=== PATIENT | male | born 1935 | race African-American/Black ===

== ENCOUNTER 2016-09-15 12:14 | Emergency (ER) | payer OTHER ==
[~2016-09-15] VITALS: Ht 185.4 cm; Wt 78.4 kg
[2016-09-15 13:03] LABS: CREATININE 1.8 mg/dL (0.6-1.3); POTASSIUM 3.8 mEq/L (3.7-5.4)
[2016-09-15] MEDS ORDERED: METOPROLOL SUCC25 MG PO (13:28)
[2016-09-15] MEDS ORDERED: ELIQUIS2.5 MG PO (13:28)
[2016-09-15] MEDS ORDERED: JANUVIA25 MG PO (13:29)
[2016-09-15 13:33] VITALS: BP 133/68
== END 2016-09-15 13:35 | disposition home or self-care (01) ==
LOC: EME 12:14
PROVIDERS: Emergency Medicine
PROC: 0T9B70Z Drainage of Bladder with Drainage Device, Via Natural or Artificial Opening (ICD-10-PCS; principal; 2016-09-15)
DX: N40.1 Benign prostatic hyperplasia with lower urinary tract symptoms (principal); R33.8 Other retention of urine; N17.9 Acute kidney failure, unspecified; T83.83XA Hemorrhage due to genitourinary prosthetic devices, implants and grafts, initial encounter; E11.9 Type 2 diabetes mellitus without complications; Z79.84 Long term (current) use of oral hypoglycemic drugs; Z85.46 Personal history of malignant neoplasm of prostate; Z87.891 Personal history of nicotine dependence
CPT/HCPCS: 80047; 81003; 99281; 99284

== ENCOUNTER → 2016-12-14 | Outpatient (CLI) | payer OTHER ==
[~2016-12-14] MED LIST: ELIQUIS2.5 MG PO; JANUVIA25 MG PO; METOPROLOL SUCC25 MG PO
== END ==
LOC: RAD 08:18
DX: N28.9 Disorder of kidney and ureter, unspecified (principal); Z95.828 Presence of other vascular implants and grafts
CPT/HCPCS: 71250

== ENCOUNTER 2017-02-28 09:01 | Emergency (ER) | payer OTHER ==
[~2017-02-28] VITALS: Ht 185.4 cm; Wt 81.7 kg
[2017-02-28 10:11] LABS: EOSINOPHIL (%) 1.4 % (0-5); EOSINOPHIL COUNT 0.1 K/uL (0-0.3); HEMATOCRIT 35.5 % (38.0-50.0); IMMATURE GRANULOCYTE (%) 0.5 % (0.0-0.7); IMMATURE GRANULOCYTE COUNT 0.1 K/uL; INSTRUMENT ABS NEUTROPHIL CT 7.8 K/uL; LYMPHOCYTE COUNT 1.3 K/uL (1.0-2.8); MCH 26.1 PG (29.0-34.0); MCHC 32.1 G/DL (30.0-36.0); MCV 81.2 FL (86-99); MEAN PLAT.VOLUME 10.3 uM^3 (9.0-12.4); MONOCYTE COUNT 0.8 K/uL (0-0.8); NEUTROPHIL (%) 77.4 % (45-76); NEUTROPHIL COUNT 7.8 K/uL (1.8-6.4); PLATELET COUNT 213 K/uL (156-360); RBC DIS.WIDTH-CV 16.2 % (11.8-14.6); RBC DIS.WIDTH-SD 48.7 % (39-53); RED BLOOD COUNT 4.37 M/uL (4.00-5.50); WHITE BLOOD COUNT 10.1 K/uL (4.1-10.2)
[2017-02-28 10:21] LABS: CHLORIDE 106 mEq/L (99-109); POTASSIUM 3.7 mEq/L (3.7-5.4); SODIUM 138 mEq/L (136-147)
[2017-02-28 10:22] LABS: GLUCOSE 193 mg/dL (70-99)
[2017-02-28 10:24] LABS: ANION GAP 11 MEQ/L (2-14)
[2017-02-28 10:26] LABS: GFR ESTIMATE (CALCULATED) 50 mL/min/
[2017-02-28 10:27] LABS: UREA NITROGEN (BUN) 13 mg/dL (9-23)
[2017-02-28 11:21] LABS: ADD MIUA? YES; BILIRUBIN NEGATIVE; BLOOD SMALL; COLOR YELLOW ((YELLOW)); GLUCOSE (STRIP) NEGATIVE; KETONES NEGATIVE; LEUKOCYTES LARGE; NITRITE NEGATIVE; PROTEIN (STRIP) 30; UROBILINOGEN 0.2 MG/DL (0.2-1.0)
[2017-02-28 11:29] LABS: BACTERIA 2+ /HPF; EPITHELIAL CELLS RARE /HPF; MUCUS NONE SEEN /LPF; RED BLOOD CELLS 20-30 /HPF (0-5); UCUL ADDED? YES; WHITE BLOOD CELLS TNTC /HPF (0-5)
[2017-02-28] MEDS ORDERED: LEVAQUIN750 MG PO (12:48)
[2017-02-28 15:09] VITALS: BP 120/67
== END 2017-02-28 15:11 | disposition home or self-care (01) ==
LOC: EME 09:01
PROVIDERS: Emergency Medicine
DX: N45.3 Epididymo-orchitis (principal); N43.3 Hydrocele, unspecified; E11.9 Type 2 diabetes mellitus without complications; Z79.84 Long term (current) use of oral hypoglycemic drugs; Z79.01 Long term (current) use of anticoagulants; Z85.46 Personal history of malignant neoplasm of prostate; Z87.891 Personal history of nicotine dependence
CPT/HCPCS: 76870; 80048; 81003; 83605; 85025; 87040; 87077; 87086; 87186; 99281; 99285; J1956; J7030